=== PATIENT | male | born 1950 | race Caucasian/White ===

== ENCOUNTER 2023-04-17 10:34 | Inpatient (IN) | payer OTHER ==
[~2023-04-17] VITALS: Ht 180.3 cm; Wt 90.7 kg
[2023-04-17] VITALS (7 sets, daily range): BP systolic 146–174; PULSE 63–81; RESP 16–20; TEMP 96.6–98.1; O2SAT 98–99
[2023-04-17 11:17] LABS: BASOPHILS # (AUTO) 0.1 K/uL (0.0-0.2); BASOPHILS % (AUTO) 0.6 % (0.0-2.0); EOSINOPHILS # (AUTO) 0.1 K/uL (0.0-0.4); EOSINOPHILS % (AUTO) 0.8 % (0.0-4.0); HEMATOCRIT 47.7 % (36-54); LYMPHOCYTES % (AUTO) 20.3 % (20.5-51.5); MEAN CORPUSCULAR HEMOGLOBIN 29 pg (27-31); MEAN CORPUSCULAR HGB CONC 34 % (32-36); MEAN CORPUSCULAR VOLUME 87 fL (79.0-98.0); MONOCYTES # (AUTO) 0.5 K/uL (0.0-1.0); MONOCYTES % (AUTO) 5.2 % (1.7-9.3); NEUTROPHILS # (AUTO) 7.1 K/uL (1.8-7.7); NEUTROPHILS % (AUTO) 73.1 % (40.0-70.0); PLATELET COUNT (AUTO) 268 K/uL (130-430); RED BLOOD CELL COUNT(AUTO) 5.49 MIL/uL (4.2-6.2); RED CELL DISTRIBUTION WIDTH 15.8 % (9.0-15.0); WHITE BLOOD COUNT (AUTO) 9.7 K/uL (4.8-10.8)
[2023-04-17 11:40] LABS: ALANINE AMINOTRANSFERASE 13 U/L (12-78); ALBUMIN 3.6 g/dL (3.4-4.8); ANION GAP 9 (5-15); ASPARTATE AMINOTRANSFERASE 20 U/L (10-37); CALCIUM 8.7 mg/dL (8.4-11.0); CARBON DIOXIDE 24 mmol/L (23-29); CHLORIDE 103 mmol/L (98-107); CREATININE 0.97 mg/dL (0.55-1.30); GFR AFRICAN AMERICAN 98 mL/min (>90); GLUCOSE 122 mg/dL (74-106); POTASSIUM 4.2 mmol/L (3.5-5.1); SODIUM SERUM 136 mmol/L (136-145); TOTAL BILIRUBIN 0.3 mg/dL (0.0-1.0); TOTAL PROTEIN, SERUM 7.7 g/dL (6.4-8.3); UREA NITROGEN, BLOOD 13 mg/dL (8-21)
[2023-04-17 11:54] LABS: GFR NON AFRICAN-AMERICAN 81 mL/min (>90)
[2023-04-17] MEDS ORDERED: hydrALAZINE HCL 20 MG/ML VIAL IVP ONE (12:00)
[2023-04-17] MEDS ORDERED: LORazepam 2 MG/ML VIAL IVP PRN (12:45)
[2023-04-17] MEDS ORDERED: MAGNESIUM SULFATE 50 ML IV PRN (12:45)
[2023-04-17] MEDS ORDERED: ZOLPIDEM TARTRATE 5 MG TABLET PO PRN (12:45)
[2023-04-17] MEDS ORDERED: ONDANSETRON HCL 4 MG/2 ML VIAL IVP PRN (12:45)
[2023-04-17] MEDS ORDERED: MUPIROCIN 2% TOPICAL OINTMENT 22 GM NS PRN (12:45)
[2023-04-17] MEDS ORDERED: MORPHINE 2 MG/ML INJ. SYRINGE IVP PRN ×2 (12:45)
[2023-04-17] MEDS ORDERED: DOCUSATE SODIUM 100 MG CAPSULE PO PRN (12:45)
[2023-04-17] MEDS ORDERED: ACETAMINOPHEN 325 MG TABLET PO PRN (12:45)
[2023-04-17] MEDS ORDERED: POTASSIUM CHLORIDE 20 MEQ TAB.PRT.SR PO PRN (12:45)
[2023-04-17] MEDS ORDERED: amLODIPine BESYLATE 10 MG TABLET PO ONE (13:00)
[2023-04-17] MEDS ORDERED: LISINOPRIL 10 MG TABLET (PRINIVIL) PO ONE (13:00)
[2023-04-17 13:47] LABS: BILIRUBIN,URINE NEGATIVE (NEGATIVE); BLOOD, URINE NEGATIVE (NEGATIVE); CLARITY/URINE Clear (CLEAR); COLOR,URINE YELLOW (YELLOW); GLUCOSE,URINE NEGATIVE (NEGATIVE); NITRITE, URINE NEGATIVE (NEGATIVE); PROTEIN URINE NEGATIVE (NEGATIVE); UROBILINOGEN,URINE 0.2 (0.2-1.0)
[2023-04-17 13:50] LABS: KETONES,URINE NEGATIVE (NEGATIVE); LEUKOCYTE ESTERASE ,URINE NEGATIVE (NEGATIVE)
[2023-04-17] MEDS ORDERED: hydrALAZINE HCL 20 MG/ML VIAL IVP PRN (17:45)
[2023-04-17] MEDS: hydrALAZINE HCL 25 MG TABLET PO SCH (18:11)
[2023-04-17] MEDS: NACL 0.9% 1,000 ML IV SCH (18:12)
[2023-04-17] MEDS: HEPARIN SODIUM,PORCINE 5,000 UNITS/ML VIAL SUBCUT SCH (20:51)
[2023-04-18] VITALS (7 sets, daily range): BP systolic 123–170; PULSE 56–72; RESP 16–20; TEMP 97.2–98.7; O2SAT 95–98
[2023-04-18] MEDS: hydrALAZINE HCL 25 MG TABLET PO SCH ×4 (00:51→19:38)
[2023-04-18] MEDS: NACL 0.9% 1,000 ML IV SCH ×2 (01:15→13:45)
[2023-04-18 05:19] LABS: BASOPHILS # (AUTO) 0.1 K/uL (0.0-0.2); BASOPHILS % (AUTO) 0.7 % (0.0-2.0); EOSINOPHILS # (AUTO) 0.2 K/uL (0.0-0.4); EOSINOPHILS % (AUTO) 1.7 % (0.0-4.0); HEMATOCRIT 44.7 % (36-54); HEMOGLOBIN 14.7 g/dL (14.0-18.0); LYMPHOCYTES # (AUTO) 2.2 K/uL (1.0-5.5); LYMPHOCYTES % (AUTO) 24.6 % (20.5-51.5); MEAN CORPUSCULAR HEMOGLOBIN 29 pg (27-31); MEAN CORPUSCULAR HGB CONC 33 % (32-36); MEAN CORPUSCULAR VOLUME 88 fL (79.0-98.0); MONOCYTES # (AUTO) 0.6 K/uL (0.0-1.0); MONOCYTES % (AUTO) 6.4 % (1.7-9.3); NEUTROPHILS # (AUTO) 5.9 K/uL (1.8-7.7); NEUTROPHILS % (AUTO) 66.6 % (40.0-70.0); PLATELET COUNT (AUTO) 254 K/uL (130-430); RED CELL DISTRIBUTION WIDTH 15.8 % (9.0-15.0); WHITE BLOOD COUNT (AUTO) 8.9 K/uL (4.8-10.8)
[2023-04-18 05:25] LABS: CALCIUM 8.1 mg/dL (8.4-11.0); CREATININE 1.04 mg/dL (0.55-1.30)
[2023-04-18] MEDS: ATORVASTATIN 20 MG TABLET PO SCH (10:04)
[2023-04-18] MEDS: amLODIPine BESYLATE 10 MG TABLET PO SCH (10:04)
[2023-04-18] MEDS: LISINOPRIL 10 MG TABLET (PRINIVIL) PO SCH (10:05)
[2023-04-18] MEDS: HEPARIN SODIUM,PORCINE 5,000 UNITS/ML VIAL SUBCUT SCH ×2 (10:07→22:10)
[2023-04-18] MEDS ORDERED: NICOTINE 21 MG/24 HR PATCH.TD24 TD ONE (11:00)
[2023-04-19] MEDS: hydrALAZINE HCL 25 MG TABLET PO SCH ×5 (00:24→23:25)
[2023-04-19 01:10] VITALS: BP_SYST 130; PULSE 64; RESP 18; TEMP 98.1; O2SAT 95
[2023-04-19] MEDS: NACL 0.9% 1,000 ML IV SCH ×2 (03:15→15:15)
[2023-04-19 07:41] LABS: BASOPHILS # (AUTO) 0.1 K/uL (0.0-0.2); BASOPHILS % (AUTO) 0.7 % (0.0-2.0); EOSINOPHILS # (AUTO) 0.1 K/uL (0.0-0.4); EOSINOPHILS % (AUTO) 1.1 % (0.0-4.0); HEMATOCRIT 47.6 % (36-54); HEMOGLOBIN 15.6 g/dL (14.0-18.0); LYMPHOCYTES % (AUTO) 21.3 % (20.5-51.5); MEAN CORPUSCULAR HEMOGLOBIN 29 pg (27-31); MEAN CORPUSCULAR HGB CONC 33 % (32-36); MEAN CORPUSCULAR VOLUME 88 fL (79.0-98.0); MONOCYTES # (AUTO) 0.6 K/uL (0.0-1.0); MONOCYTES % (AUTO) 6.7 % (1.7-9.3); NEUTROPHILS # (AUTO) 6.7 K/uL (1.8-7.7); NEUTROPHILS % (AUTO) 70.2 % (40.0-70.0); PLATELET COUNT (AUTO) 256 K/uL (130-430); RED BLOOD CELL COUNT(AUTO) 5.42 MIL/uL (4.2-6.2); RED CELL DISTRIBUTION WIDTH 16.2 % (9.0-15.0); WHITE BLOOD COUNT (AUTO) 9.5 K/uL (4.8-10.8)
[2023-04-19 08:03] LABS: CALCIUM 8.4 mg/dL (8.4-11.0); CREATININE 0.99 mg/dL (0.55-1.30); POTASSIUM 4.2 mmol/L (3.5-5.1)
[2023-04-19 09:00] VITALS: BP_SYST 142; PULSE 78; RESP 16; TEMP 97.7; O2SAT 97
[2023-04-19] MEDS: ATORVASTATIN 20 MG TABLET PO SCH (10:20)
[2023-04-19] MEDS: HEPARIN SODIUM,PORCINE 5,000 UNITS/ML VIAL SUBCUT SCH ×2 (10:20→20:19)
[2023-04-19] MEDS: amLODIPine BESYLATE 10 MG TABLET PO SCH (10:21)
[2023-04-19] MEDS: LISINOPRIL 10 MG TABLET (PRINIVIL) PO SCH (10:21)
[2023-04-19] MEDS: NICOTINE 21 MG/24 HR PATCH.TD24 TD SCH (10:22)
[2023-04-19 12:36] VITALS: BP_SYST 133; PULSE 65; RESP 18; TEMP 97.8; O2SAT 97
[2023-04-19 16:00] VITALS: BP_SYST 138; PULSE 72; RESP 16; TEMP 97.6; O2SAT 98
[2023-04-19 19:25] VITALS: BP_SYST 122; PULSE 74; RESP 18; TEMP 96.8; O2SAT 96
[2023-04-19 23:21] VITALS: BP_SYST 137; PULSE 60; RESP 18; TEMP 97.9; O2SAT 95
[2023-04-20 05:00] LABS: BASOPHILS # (AUTO) 0.1 K/uL (0.0-0.2); BASOPHILS % (AUTO) 0.7 % (0.0-2.0); EOSINOPHILS # (AUTO) 0.2 K/uL (0.0-0.4); EOSINOPHILS % (AUTO) 1.8 % (0.0-4.0); HEMATOCRIT 44.3 % (36-54); HEMOGLOBIN 14.7 g/dL (14.0-18.0); LYMPHOCYTES # (AUTO) 2.2 K/uL (1.0-5.5); LYMPHOCYTES % (AUTO) 23.7 % (20.5-51.5); MEAN CORPUSCULAR HEMOGLOBIN 29 pg (27-31); MEAN CORPUSCULAR HGB CONC 33 % (32-36); MEAN CORPUSCULAR VOLUME 88 fL (79.0-98.0); MONOCYTES # (AUTO) 0.7 K/uL (0.0-1.0); MONOCYTES % (AUTO) 7.2 % (1.7-9.3); NEUTROPHILS # (AUTO) 6.2 K/uL (1.8-7.7); NEUTROPHILS % (AUTO) 66.6 % (40.0-70.0); PLATELET COUNT (AUTO) 245 K/uL (130-430); RED BLOOD CELL COUNT(AUTO) 5.05 MIL/uL (4.2-6.2); RED CELL DISTRIBUTION WIDTH 15.9 % (9.0-15.0); WHITE BLOOD COUNT (AUTO) 9.3 K/uL (4.8-10.8)
[2023-04-20 05:25] LABS: CALCIUM 8.3 mg/dL (8.4-11.0); CREATININE 0.99 mg/dL (0.55-1.30); POTASSIUM 4.6 mmol/L (3.5-5.1)
[2023-04-20] MEDS: NACL 0.9% 1,000 ML IV SCH ×2 (05:29→17:39)
[2023-04-20] MEDS: hydrALAZINE HCL 25 MG TABLET PO SCH ×3 (05:31→17:41)
[2023-04-20 08:06] VITALS: BP_SYST 149; PULSE 58; RESP 16; TEMP 97.7; O2SAT 96
[2023-04-20] MEDS: amLODIPine BESYLATE 10 MG TABLET PO SCH (09:12)
[2023-04-20] MEDS: ATORVASTATIN 20 MG TABLET PO SCH (09:12)
[2023-04-20] MEDS: LISINOPRIL 10 MG TABLET (PRINIVIL) PO SCH (09:13)
[2023-04-20] MEDS: NICOTINE 21 MG/24 HR PATCH.TD24 TD SCH (09:13)
[2023-04-20] MEDS: HEPARIN SODIUM,PORCINE 5,000 UNITS/ML VIAL SUBCUT SCH ×2 (09:14→20:29)
[2023-04-20 12:00] VITALS: BP_SYST 142; PULSE 68; TEMP 97.1
[2023-04-20 16:00] VITALS: BP_SYST 119; PULSE 78; RESP 16; TEMP 97.2; O2SAT 98
[2023-04-20 19:25] VITALS: BP_SYST 164; PULSE 75; RESP 18; TEMP 96.9; O2SAT 95
[2023-04-20 23:15] VITALS: BP_SYST 133; PULSE 66; RESP 18; TEMP 98.5; O2SAT 97
[2023-04-21] MEDS: hydrALAZINE HCL 25 MG TABLET PO SCH ×3 (00:14→11:47)
[2023-04-21 05:49] LABS: BASOPHILS # (AUTO) 0.2 K/uL (0.0-0.2); BASOPHILS % (AUTO) 1.7 % (0.0-2.0); EOSINOPHILS # (AUTO) 0.2 K/uL (0.0-0.4); EOSINOPHILS % (AUTO) 1.8 % (0.0-4.0); HEMATOCRIT 45.7 % (36-54); LYMPHOCYTES # (AUTO) 2.5 K/uL (1.0-5.5); LYMPHOCYTES % (AUTO) 26.4 % (20.5-51.5); MEAN CORPUSCULAR HEMOGLOBIN 29 pg (27-31); MEAN CORPUSCULAR HGB CONC 33 % (32-36); MEAN CORPUSCULAR VOLUME 88 fL (79.0-98.0); MONOCYTES # (AUTO) 0.6 K/uL (0.0-1.0); MONOCYTES % (AUTO) 6.4 % (1.7-9.3); NEUTROPHILS % (AUTO) 63.7 % (40.0-70.0); PLATELET COUNT (AUTO) 259 K/uL (130-430); RED CELL DISTRIBUTION WIDTH 16.2 % (9.0-15.0); WHITE BLOOD COUNT (AUTO) 9.5 K/uL (4.8-10.8)
[2023-04-21] MEDS: NACL 0.9% 1,000 ML IV SCH (05:50)
[2023-04-21 06:01] LABS: CALCIUM 8.6 mg/dL (8.4-11.0); CREATININE 1.01 mg/dL (0.55-1.30); POTASSIUM 4.2 mmol/L (3.5-5.1)
[2023-04-21 08:00] VITALS: BP_SYST 151; PULSE 67; RESP 16; TEMP 96.3; O2SAT 94
[2023-04-21] MEDS: ATORVASTATIN 20 MG TABLET PO SCH (08:43)
[2023-04-21] MEDS: NICOTINE 21 MG/24 HR PATCH.TD24 TD SCH (08:43)
[2023-04-21] MEDS: LISINOPRIL 10 MG TABLET (PRINIVIL) PO SCH (08:44)
[2023-04-21] MEDS: amLODIPine BESYLATE 10 MG TABLET PO SCH (08:44)
[2023-04-21] MEDS: HEPARIN SODIUM,PORCINE 5,000 UNITS/ML VIAL SUBCUT SCH (08:46)
[2023-04-21 09:20] VITALS: O2SAT 97
[2023-04-21 09:41] VITALS: BP_SYST 146; PULSE 74; RESP 16; TEMP 98.4; O2SAT 95
== END 2023-04-21 11:55 | disposition short-term general hospital (02) | DRG 74 ==
LOC: SED 10:34 → STU 14:26
PROVIDERS: ADMIT General Practice; ATTEND General Practice
PROC: 4A00X4Z Measurement of Central Nervous Electrical Activity, External Approach (ICD-10-PCS; principal; 2023-04-18)
DX: G90.8 Other disorders of autonomic nervous system (principal); I10 Essential (primary) hypertension; E78.5 Hyperlipidemia, unspecified; J44.9 Chronic obstructive pulmonary disease, unspecified; I35.0 Nonrheumatic aortic (valve) stenosis; W86.8XXA Exposure to other electric current, initial encounter; Z20.822 Contact with and (suspected) exposure to COVID-19; Y92.89 Other specified places as the place of occurrence of the external cause; Z87.891 Personal history of nicotine dependence; Z91.81 History of falling; Y93.89 Activity, other specified; Y99.8 Other external cause status
CPT/HCPCS: 36415; 70450-TC; 70551; 71045; 76376; 80048; 80053; 80061; 81003; 82962; 83037; 83735; 83880; 84443; 84484; 85025; 93005; 93306; 95816; 96365; 97110-GP; 97116-GP; 97163-GP; 97530-GP; 99285; G0378; J0360; J1644; J7030